=== PATIENT | male | born 1985 | race Caucasian/White ===

== ENCOUNTER → 2022-11-03 17:30 | Outpatient (BNVA) | payer OTHER, SELFPAY | PROVIDERS: Family Provider General Practice; PCP Family Medicine; Visit Provider Nurse Practitioner Family | DX: Z20.818 Contact with and (suspected) exposure to other bacterial communicable diseases (principal) | CPT/HCPCS: 87070; 87071; 87880 ==

== ENCOUNTER → 2024-10-25 08:38 | Outpatient (BNVA) | payer OTHER, SELFPAY | PROVIDERS: PCP Family Medicine; Visit Provider Family Medicine | DX: Z13.6 Encounter for screening for cardiovascular disorders (principal) | CPT/HCPCS: 80053; 80061; 84403; 84439; 84443; 85025 ==

== ENCOUNTER 2024-10-29 15:46 | Outpatient (CLI) | payer OTHER, SELFPAY ==
--- NOTE | 2024-10-29 16:15 | US_ITS ---
WS: [id number] TESTICULAR ULTRASOUND HISTORY: R testicular mass COMPARISON: None available. TECHNIQUE: Real-time and color Doppler imaging utilized to perform a testicular ultrasound. Right testicle: 4.5 cm x 3.5 cm x 2.7 cm. Normal size and echogenicity. No mass or torsion. Normal color Doppler is present throughout. Systolic and diastolic velocities are both present. No significant hydrocele. Small simple hydrocele adjacent to a portion of the testicle. Right epididymis: Normal epididymis with no increased vascularity. Tiny spermatoceles associated with the epididymal head. Left testicle: 4.5 cm x 3.3 cm x 3.3 cm. Normal size and echogenicity. No mass or torsion. Normal color Doppler is present throughout. Systolic and diastolic velocities are both present. No significant hydrocele. Left epididymis: Normal epididymis with no increased vascularity. US/US scrotum [id number] IMPRESSION: NORMAL TESTICULAR ULTRASOUND. No testicular mass or torsion identified.
== END 2024-10-29 15:47 | disposition home or self-care (01) ==
LOC: RAD 15:49
PROVIDERS: PCP Family Medicine; Visit Provider Family Medicine
DX: N50.89 Other specified disorders of the male genital organs (principal)
CPT/HCPCS: 76870